=== PATIENT | female | born 2000 | race Caucasian/White ===

== ENCOUNTER → 2020-03-20 13:54 | Outpatient (CLI) | payer MEDICAID, SELFPAY ==
--- NOTE | 2020-03-20 13:58 | US_ITS ---
STUDY: ULTRASOUND BREAST - LEFT REASON FOR EXAM: Female, 19 years old. Palpable lump left breast. TECHNIQUE: Axial and longitudinal images of the LEFT breast were performed with a high resolution ultrasound transducer. # OF IMAGES: 8 COMPARISON: None. FINDINGS: LEFT Breast: The palpable abnormality corresponds to 1.3 cm x 1.3 cm x 1.2 cm slightly irregular heterogeneous solid nodule at the 3 o''clock position of the breast at 2 cm from the nipple. Some posterior acoustical enhancement is seen. This may represent a fibroadenoma although a tissue diagnosis is recommended. US/Breast Limited Unilateral IMPRESSION: The palpable abnormality corresponds to a 1.3 cm x 1.3 cm x 1.2 cm slightly irregular and heterogeneous solid nodule at the 3 o''clock position of the breast at 2 cm from the nipple. Tissue diagnosis is recommended. ASSESSMENT CATEGORY: BIRADS Category 4: Suspicious - Biopsy Should Be Considered. A letter regarding these results will be sent to the patient by the facility within 30 days. Electronically Signed: Edre Kamara, at 14:30 EST , Service support ,
== END ==
PROVIDERS: Referring Provider Nurse Practitioner; Visit Provider Nurse Practitioner
DX: N63.25 Unspecified lump in the left breast, overlapping quadrants (principal)
CPT/HCPCS: 76642

== ENCOUNTER → 2020-03-27 12:06 | Outpatient (CLI) | payer MEDICAID, SELFPAY ==
[2020-03-27 09:47] VITALS: BMI 23.9
--- NOTE | 2020-03-27 10:00 | BRBX_PTH ---
PATIENT: SILVIA FLORES LOC: [facility] U#:[id number] AGE/SX: 24/F ROOM: RE03/27/[address]: Dr. Thong Barrera MD : 2000 BED: DIS: SPEC #: [id number] RECD: 03/27/20 11:52 STATUS: SAWYER REElijah #: [id number] JIMMIE: 03/27/20 10:[address]: Thong Barrera DEPT: SURGICAL PATHOLOGY RECD BY: Althea Jarrett ENTERED: 03/27/20 12:29 SP TYPE: BREAST BX OTHR DR: No Primary Care Phys Tissues: Breast, NOS Procedures: Surgery Specimen Level IV HEADER OPERATION: Left breast biopsy PRE-OP DIAGNOSIS: Abnormal left breast ultrasound TISSUE SUBMITTED: Left breast tissue MICROSCOPIC DIAGNOSIS Left breast, core biopsy: Fibroadenoma. Negative for atypia or malignancy. See comment. JC:radha 03/28/2020 COMMENT Correlation with clinical, radiologic findings and appropriate follow up are necessary. Case has been reviewed in consultation with Dr. Ching who concurs with the above diagnosis. IDC:AM MICROSCOPIC DESCRIPTION Slides are reviewed. GROSS DESCRIPTION Received in fixative is one container labeled with the patient name and designated left breast. The specimen consists of multiple elongated fragments of benavidez-yellow fibroadipose tissue that in aggregate measure 1 x 0.2 x 0.1 cm. The entire specimen is submitted in one cassette. / SJ:rg 03/27/19 TC:1 CPT: 71036
== END ==
PROVIDERS: Referring Provider Surgery; Visit Provider Surgery
DX: R92.8 Other abnormal and inconclusive findings on diagnostic imaging of breast (principal)
CPT/HCPCS: 88305